=== PATIENT | female | born 1945 | race Caucasian/White ===

== ENCOUNTER → 2017-11-18 | Outpatient (CLI) | payer MEDICARE ==
[~2017-11-18] MED LIST: AMLO5; ASPI81EC; Aldactazide 251 EACH PO; Aspir-Low81 MG PO; B VITAMINS; B-121000 MC2 PO; Benicar40 MG; Excedrin Extra1 EACH PO; FISH1000 PO; FLAX PO; FOLI1; HYDCHL25; LISI20; MULVITMINA; NAPR500; PANT40 PO; POTA10T; SIMV40 PO; Senna8.6 MG PO; Spironolactone1 EACH
== END | disposition home or self-care (01) ==
LOC: LAB SHORT 15:48 → PLD 15:48
DX: D22.71 Melanocytic nevi of right lower limb, including hip (principal)
CPT/HCPCS: 88305

== ENCOUNTER 2018-06-23 07:25 | Day surgery (SDC) | payer MEDICARE ==
[~2018-06-23] VITALS: Ht 165.1 cm; Wt 76.0 kg
[~2018-06-23 07:25] MED LIST changes: -Aldactazide 251 EACH PO; -Aspir-Low81 MG PO; -B-121000 MC2 PO; -FLAX PO; -Senna8.6 MG PO
== END 2018-06-23 10:04 | disposition home or self-care (01) ==
LOC: ORSCSDS 07:25
PROVIDERS: Ophthalmology
PROC: 08RK3JZ Replacement of Left Lens with Synthetic Substitute, Percutaneous Approach (ICD-10-PCS; principal; 2018-06-23 09:00)
DX: H25.12 Age-related nuclear cataract, left eye (principal); I10 Essential (primary) hypertension; K21.9 Gastro-esophageal reflux disease without esophagitis; Z79.899 Other long term (current) drug therapy
CPT/HCPCS: J2001; J2250; J3010; J3301; J7120; V2632

== ENCOUNTER 2018-07-28 07:15 | Day surgery (SDC) | payer MEDICARE ==
[~2018-07-28] VITALS: Ht 165.1 cm; Wt 77.0 kg
[~2018-07-28 07:15] MED LIST changes: +Aldactazide 251 EACH PO; +Aspir-Low81 MG PO; +B-121000 MC2 PO; +FLAX PO; +Senna8.6 MG PO
== END 2018-07-28 10:05 | disposition home or self-care (01) ==
LOC: ORSCSDS 07:15
PROVIDERS: Ophthalmology
PROC: 08RJ3JZ Replacement of Right Lens with Synthetic Substitute, Percutaneous Approach (ICD-10-PCS; principal; 2018-07-28 09:00)
DX: H25.12 Age-related nuclear cataract, left eye (principal); I10 Essential (primary) hypertension; E78.00 Pure hypercholesterolemia, unspecified; Z79.899 Other long term (current) drug therapy
CPT/HCPCS: J2250; J3010; J3301; V2632

== ENCOUNTER → 2019-11-01 | Outpatient (CLI) | payer MEDICARE | END | disposition home or self-care (01) | LOC: PLD 13:46 → LAB SHORT 13:46 | DX: D48.5 Neoplasm of uncertain behavior of skin (principal) | CPT/HCPCS: 88305 ==

== ENCOUNTER → 2020-01-18 | Outpatient (CLI) | payer MEDICARE | END | disposition home or self-care (01) | LOC: LAB SHORT 13:15 → PLD 13:15 | DX: D48.5 Neoplasm of uncertain behavior of skin (principal) | CPT/HCPCS: 88305 ==

== ENCOUNTER → 2021-01-11 | Outpatient (CLI) | payer MEDICARE ==
[2021-01-11 10:55] LABS: Appearance, Urine Clear (Clear); Bilirubin, Urine Neg (Neg); Blood, Urine Neg (Neg); Color, Urine Yellow (P-Yellow); Glucose Qualitative, Urine Neg (Neg); Ketones, Urine Neg (Neg); Leukocyte Esterase, Urine Neg (Neg); Nitrite, Urine Neg (Neg); Protein, Urine Neg (Neg); Specific Gravity, Urine 1.015 (1.003-1.022); Urobilinogen, Urine NORM (Normal)
[2021-01-15 14:10] LABS: M-SPIKE, % Not Observed % (Not Observed); PROTEIN,TOTAL,URINE <4.0 mg/dL (Not Estab.)
== END | disposition home or self-care (01) ==
LOC: LAB SHORT 06:30 → LAB FUT 01-04 11:25
PROVIDERS: Internal Medicine
DX: R79.89 Other specified abnormal findings of blood chemistry (principal); N39.0 Urinary tract infection, site not specified
CPT/HCPCS: 81003; 81050; 84156; 84166

== ENCOUNTER 2021-10-17 14:49 | Emergency (ER) | payer MEDICARE ==
[~2021-10-17] VITALS: Ht 162.6 cm; Wt 71.2 kg
[2021-10-17] MEDS ORDERED: AMOCLA875 PO (17:34)
== END 2021-10-17 18:04 | disposition home or self-care (01) ==
LOC: ER 14:49
DX: R60.0 Localized edema (principal); I10 Essential (primary) hypertension; E78.5 Hyperlipidemia, unspecified; Z88.8 Allergy status to other drugs, medicaments and biological substances; Z79.899 Other long term (current) drug therapy
CPT/HCPCS: 70450; 99283-25; A9270

== ENCOUNTER 2022-07-07 10:24 | Day surgery (SDC) | payer MEDICARE ==
[~2022-07-07] VITALS: Ht 162.6 cm; Wt 75.6 kg
[~2022-07-07 10:24] MED LIST changes: +AMOCLA875 PO
[2022-07-07] MEDS ORDERED: AMLO5 (10:42)
[2022-07-07] MEDS ORDERED: OLME20 (10:43)
[2022-07-07] MEDS ORDERED: ROSU10TA (10:43)
[2022-07-07] MEDS ORDERED: PANT40 (10:43)
[2022-07-07] MEDS ORDERED: SPIR25 (10:44)
== END 2022-07-07 13:12 | disposition home or self-care (01) ==
LOC: ORSCSDS 10:24
PROVIDERS: Student in an Organized Health Care Education/Training Program
PROC: 0DBN8ZX Excision of Sigmoid Colon, Via Natural or Artificial Opening Endoscopic, Diagnostic (ICD-10-PCS; principal; 2022-07-07 11:45)
PROC: 0DBK8ZX Excision of Ascending Colon, Via Natural or Artificial Opening Endoscopic, Diagnostic (ICD-10-PCS; principal; 2022-07-07 11:45)
PROC: 0DBH8ZX Excision of Cecum, Via Natural or Artificial Opening Endoscopic, Diagnostic (ICD-10-PCS; principal; 2022-07-07 11:45)
PROC: 0DBM8ZX Excision of Descending Colon, Via Natural or Artificial Opening Endoscopic, Diagnostic (ICD-10-PCS; principal; 2022-07-07 11:45)
PROC: 0DBP8ZX Excision of Rectum, Via Natural or Artificial Opening Endoscopic, Diagnostic (ICD-10-PCS; principal; 2022-07-07 11:45)
PROC: 0DBL8ZX Excision of Transverse Colon, Via Natural or Artificial Opening Endoscopic, Diagnostic (ICD-10-PCS; principal; 2022-07-07 11:45)
PROC: 0DB58ZX Excision of Esophagus, Via Natural or Artificial Opening Endoscopic, Diagnostic (ICD-10-PCS; 2022-07-07 11:45)
PROC: 0DB68ZX Excision of Stomach, Via Natural or Artificial Opening Endoscopic, Diagnostic (ICD-10-PCS; 2022-07-07 11:45)
DX: K21.9 Gastro-esophageal reflux disease without esophagitis (principal); K22.70 Barrett's esophagus without dysplasia; K31.7 Polyp of stomach and duodenum; K29.70 Gastritis, unspecified, without bleeding; K44.9 Diaphragmatic hernia without obstruction or gangrene; Z12.11 Encounter for screening for malignant neoplasm of colon; D12.2 Benign neoplasm of ascending colon; D12.3 Benign neoplasm of transverse colon; D12.4 Benign neoplasm of descending colon; D12.5 Benign neoplasm of sigmoid colon; K62.1 Rectal polyp; K63.89 Other specified diseases of intestine; K57.50 Diverticulosis of both small and large intestine without perforation or abscess without bleeding; Z86.010 Personal history of colon polyps; I10 Essential (primary) hypertension; Z86.711 Personal history of pulmonary embolism; E78.5 Hyperlipidemia, unspecified; Z79.899 Other long term (current) drug therapy
CPT/HCPCS: 88305; 88342; J2704; J7120

== ENCOUNTER 2023-11-06 14:15 | Emergency (ER) | payer MEDICARE ==
[~2023-11-06] VITALS: Ht 162.6 cm; Wt 74.8 kg
[~2023-11-06 14:15] MED LIST changes: +OLME20; +PANT40; +ROSU10TA; +SPIR25
[2023-11-06 15:06] LABS: BASOPHILS ABSOLUTE AUTO 0.01 K/mm3 (0.00-0.23); BASOPHILS PERCENT AUTO 0 % (0-2); EOSINOPHILS ABSOLUTE AUTO 0.06 K/mm3 (0.00-0.68); EOSINOPHILS PERCENT AUTO 1 % (0-6); Hematocrit 40.4 % (33.0-51.0); Hemoglobin 12.9 g/dL (11.5-16.0); IMMATURE GRAN ABSOLUTE AUTO 0.04 K/mm3 (0.00-0.10); IMMATURE GRAN PERCENT AUTO 0 % (0-1); LYMPHOCYTES ABSOLUTE AUTO 1.71 K/mm3 (0.84-5.20); LYMPHOCYTES PERCENT AUTO 18 % (21-46); MONOCYTES ABSOLUTE AUTO 0.46 K/mm3 (0.16-1.47); MONOCYTES PERCENT AUTO 5 % (4-13); Mean Corpuscular HGB 28.5 pg (26.0-34.0); Mean Corpuscular HGB Conc 31.9 g/dL (31.5-36.5); Mean Corpuscular Volume 89 fL (80-100); Mean Platelet Volume 8.9 fL (9.1-12.4); NEUTROPHILS ABSOLUTE AUTO 7.44 K/mm3 (1.96-9.15); NEUTROPHILS PERCENT AUTO 77 % (41-73); Platelet Count 244 K/mm3 (150-400); RDW Coefficient Variation 13.4 % (11.7-14.2); RDW Standard Deviation 43.8 fL (35.1-46.3); Red Blood Cell Count 4.52 M/mm3 (3.80-5.20); White Blood Cell Count 9.72 K/mm3 (4.00-11.30)
[2023-11-06 15:24] LABS: Albumin, Blood 3.9 g/dL (3.4-5.0); Albumin/Globulin Ratio 1.1 (0.8-1.8); Bilirubin, Total 0.7 mg/dL (0.1-1.0); Bun/Creatinine Ratio 28.3 (12.0-20.0); Calcium, Blood 10.1 mg/dL (8.5-10.1); Creatinine, Blood 1.06 mg/dL (0.40-1.00); Globulin, Blood 3.4 g/dL (2.2-4.0); Potassium, Blood 3.9 mmol/L (3.5-5.5); Total Protein, Blood 7.3 g/dL (6.4-8.2)
[2023-11-06 19:30] VITALS: BP 133/68
== END 2023-11-06 19:57 | disposition home or self-care (01) ==
LOC: ER 14:15
PROVIDERS: Physician Assistant
DX: R07.89 Other chest pain (principal); R42 Dizziness and giddiness; Z88.5 Allergy status to narcotic agent; Z88.6 Allergy status to analgesic agent; Z88.1 Allergy status to other antibiotic agents; Z79.899 Other long term (current) drug therapy; Z79.82 Long term (current) use of aspirin; I10 Essential (primary) hypertension; E78.5 Hyperlipidemia, unspecified
CPT/HCPCS: 71046; 80053; 83880; 84484; 85025; 93005; 93010; 99284-25

== ENCOUNTER → 2024-05-07 | Outpatient (CLI) | payer MEDICARE | LOC: LAB 10:00 → LAB SHORT 10:00 | DX: R30.0 Dysuria (principal) | CPT/HCPCS: 87077; 87086; 87186 ==

== ENCOUNTER 2024-10-17 08:04 | Day surgery (SDC) | payer MEDICARE ==
[~2024-10-17] VITALS: Ht 162.6 cm; Wt 75.2 kg
[~2024-10-17 08:04] MED LIST changes: +ACET500 PO; +AMLO5 PO; +DOCU100 PO; +OLMESARTAN MEDO40 MG PO; +OSTEO BI-FLEX JOINT; +PROTONIX4010 PO; +ROSUVASTATIN CA20 MG PO; -SPIR25; +SPIR25 PO; +VITAMIN B121000 MCG PO; +VITAMIN D350 MC3 PO
[2024-10-17] MEDS ORDERED: CeFAZolin Sodium 2,000 MG VIAL ONE (08:20)
[2024-10-17] MEDS ORDERED: Lactated Ringer's 1,000 ML IV ONE ×2 (08:58→09:28)
[2024-10-17] MEDS ORDERED: FentaNYL Citrate 50 MCG/ML 2 ML Injection ONE (09:06)
[2024-10-17] MEDS ORDERED: Midazolam HCl 1MG / ML 2ML Vial ONE (09:07)
[2024-10-17] MEDS ORDERED: propofoL 20 ML IV ONE (09:12)
[2024-10-17] MEDS ORDERED: Dexamethasone Sod Phos 10 MG/ML 1ML VIAL ONE (09:13)
[2024-10-17] MEDS ORDERED: Ondansetron HCl 2 MG / ML 2ML Vial ONE (09:13)
[2024-10-17] MEDS ORDERED: Glycopyrrolate 0.2 MG/ML 5ML VIAL ONE (09:28)
[2024-10-17] MEDS ORDERED: Neostigmine Methylsulfate 5MG/5ML SYR ONE (09:28)
--- NOTE | 2024-10-17 09:40 | NUR ---
10/17/24 0997 ROYAL SAHNI 0939 POST OP TEACHING AT BEDSIDE. PATIENT RESTING ON GURNEY, CALL LIGHT IN REACH, RAILS UP.
[2024-10-17 11:40] VITALS: BP 120/62
--- NOTE | 2024-10-17 12:39 | NUR ---
10/17/24 1239 Tommy Mello PT VOIDED WITHOUT COMPLICATION PRIOR TO D/C.
== END 2024-10-17 12:37 | disposition home or self-care (01) ==
LOC: ORSCSDS 08:04
PROVIDERS: Orthopaedic Surgery
PROC: 0RQT0ZZ Repair Left Carpometacarpal Joint, Open Approach (ICD-10-PCS; principal; 2024-10-17 09:45)
DX: M18.12 Unilateral primary osteoarthritis of first carpometacarpal joint, left hand (principal); I10 Essential (primary) hypertension; E78.00 Pure hypercholesterolemia, unspecified; K21.9 Gastro-esophageal reflux disease without esophagitis; Z79.899 Other long term (current) drug therapy
CPT/HCPCS: J0690; J1100; J2250; J2405; J2704; J2710; J3010; J7120

== ENCOUNTER → 2024-12-26 | Outpatient (CLI) | payer MEDICARE ==
[2024-12-26 12:50] LABS: Source, Urine Clean Catch
[2024-12-26 15:57] LABS: Appearance, Urine Clear (Clear); Bilirubin, Urine Neg (Neg); Blood, Urine Neg (Neg); Color, Urine Yellow (P-Yellow); Glucose Qualitative, Urine Neg (Neg); Ketones, Urine Neg (Neg); Leukocyte Esterase, Urine 1+ (Neg); Nitrite, Urine Neg (Neg); Protein, Urine Neg (Neg); Urobilinogen, Urine NORM (Normal)
[2024-12-26 16:30] LABS: Bacteria Mod /hpf; Red Blood Cells, Urine 0-2 /hpf (0-2); Squamous Epithelial Cells Rare /hpf (Few)
== END | disposition home or self-care (01) ==
LOC: LAB 12:49 → LAB SHORT 12:49 → LAB FUT 12-07 11:15
PROVIDERS: Internal Medicine
DX: N39.0 Urinary tract infection, site not specified (principal)
CPT/HCPCS: 81001; 87086